=== PATIENT | female | born 1990 | race Caucasian/White ===

== ENCOUNTER 2017-10-23 01:11 | Outpatient (CLI) | payer MEDICAID ==
[2017-10-23 02:01] LABS: AMORPHOUS SEDIMENT,URINE TRACE /HPF; APPEARANCE,URINE CLOUDY; BILIRUBIN,URINE NEGATIVE (NEGATIVE); COLOR,URINE YELLOW; GLUCOSE, URINE NEGATIVE (NEGATIVE); KETONES,URINE NEGATIVE (NEGATIVE); LEUKOCYTE ESTERASE,URINE LARGE (NEGATIVE); NITRITE,URINE NEGATIVE (NEGATIVE); PROTEIN,URINE NEGATIVE (NEGATIVE); TRICHOMONAS, URINE PRESENT /HPF; URINE SPECIFIC GRAVITY 1.014
[2017-10-23 03:19] LABS: URINE BARBITURATES SCREEN NEGATIVE; URINE COCAINE SCREEN NEGATIVE; URINE MARIJUANA (THC) SCREEN NEGATIVE; URINE METHADONE SCREEN NEGATIVE; URINE PHENCYCLIDINE SCREEN NEGATIVE
[2017-10-23 03:26] LABS: URINE AMPHETAMINES SCREEN UNCONFIRMED POSITIVE; URINE BENZODIAZEPINES SCREEN UNCONFIRMED POSITIVE
== END 2017-10-23 03:46 | disposition home or self-care (01) ==
LOC: LC 01:11
PROVIDERS: ATTEND Obstetrics & Gynecology
PROC: 4A1HXCZ Monitoring of Products of Conception, Cardiac Rate, External Approach (ICD-10-PCS; principal; 2017-10-23)
DX: O47.02 False labor before 37 completed weeks of gestation, second trimester (principal); O98.912 Unspecified maternal infectious and parasitic disease complicating pregnancy, second trimester; A59.9 Trichomoniasis, unspecified; Z3A.22 22 weeks gestation of pregnancy
CPT/HCPCS: 80307; 81001

== ENCOUNTER 2017-10-30 20:39 | Emergency (ER) | payer MEDICAID ==
--- NOTE | 2017-10-30 21:24 | ER Document Report ---
ED Medical Screen (RME) - General Chief Complaint: passed out, chest pain, numbness Stated Complaint: CHEST PAINS,ARM NUMBNESS Time Seen by Provider: 10/30/17 21:17 Notes: 27-year-old female, 26 weeks , comes emergency department for chief complaint of a syncopal episode that happened earlier today, she states she was sitting down, felt tingling, woke up on the floor. She states that she feels tight in her chest and like she cannot take a deep breath, she states that she also still feels tingling in all her extremities. She states she does have a history of anxiety and she is not sure if this is related. She denies fever or chills, nausea or vomiting, abdominal pain, vaginal bleeding. She is feeling baby move. She denies any daily medications. TRAVEL OUTSIDE OF THE [place] IN LAST 30 DAYS: No - Related Data Allergies/Adverse Reactions: amoxicillin [Amoxicillin] Allergy (Verified 10/23/17 02:11) ampicillin [Ampicillin] Allergy (Verified 10/23/17 02:11) Penicillins Allergy (Verified 10/23/17 02:11) Past Medical History Neurological Medical History: Reports: Hx Migraine Skin Medical History: Reports Hx Psoriasis Past Surgical History: Reports: Hx Tonsillectomy Physical Exam - Vital signs Vitals: Temp Pulse Resp BP Pulse Ox 98.2 F 98 16 110/66 99 10/30/17 21:03 10/30/17 21:03 10/30/17 21:03 10/30/17 21:03 10/30/17 21:03 - Respiratory Respiratory status: No respiratory distress. No: Labored Breath sounds: Normal. No: Decreased air movement, Wheezing - Cardiovascular Rhythm: Regular. No: Tachycardia Heart sounds: Normal auscultation, S1 appreciated, S2 appreciated Course - Re-evaluation Re-evalutation: Patient with no tachypnea, signs of distress, no hypoxia, no tachycardia. Discussed workup, wanting an x-ray, this will be performed. I have greeted and performed a rapid initial assessment of this patient. A comprehensive ED assessment and evaluation of the patient, analysis of test results and completion of the medical decision making process will be conducted by additional ED providers. - Vital Signs Vital signs: Temp Pulse Resp BP Pulse Ox 98.2 F 98 16 110/66 99 10/30/17 21:03 10/30/17 21:03 10/30/17 21:03 10/30/17 21:03 10/30/17 21:03
[2017-10-30 21:51] LABS: ABSOLUTE BASOPHILS # (AUTO) 0.1 10^3/uL (0.0-0.2); ABSOLUTE EOSINOPHILS # (AUTO) 0.2 10^3/uL (0.0-0.6); ABSOLUTE MONOCYTES (AUTO) 0.7 10^3/uL (0.1-1.4); ABSOLUTE NEUT (AUTO) 6.2 10^3/uL (1.7-8.2); BASOPHILS % (AUTO) 0.8 % (0-2); EOSINOPHILS % (AUTO) 2.2 % (0-6); HEMATOCRIT 38.8 % (36.0-47.0); HEMOGLOBIN 13.4 g/dL (12.0-15.5); LYMPHOCYTES % (AUTO) 21.9 % (13-45); MEAN CORPUSCULAR HEMOGLOBIN 29.4 pg (27.0-33.4); MEAN CORPUSCULAR HGB CONC 34.4 g/dL (32.0-36.0); MEAN CORPUSCULAR VOLUME 86 fl (80-97); MONOCYTES % (AUTO) 7.6 % (3-13); PLATELET COUNT 274 10^3/uL (150-450); RED BLOOD COUNT 4.54 10^6/uL (3.72-5.28); RED CELL DISTRIBUTION WIDTH 12.9 % (11.5-14.0); SEGMENTED NEUTROPHILS % (AUTO) 67.5 % (42-78); TOTAL CELLS COUNTED % (AUTO) 100 %; WHITE BLOOD COUNT 9.1 10^3/uL (4.0-10.5)
--- NOTE | 2017-10-30 22:01 | RADIOLOGY REPORT (SQ) ---
EXAM DESCRIPTION: CHEST PA/LAT COMPLETED DATE/TIME: 10/30/2017 9:47 pm REASON FOR STUDY: chest tightness; shield () COMPARISON: 01/20/2016 EXAM PARAMETERS: NUMBER OF VIEWS: two views TECHNIQUE: Digital Frontal and Lateral radiographic views of the chest acquired. RADIATION DOSE: NA LIMITATIONS: none FINDINGS: LUNGS AND PLEURA: No opacities, masses or pneumothorax. No pleural effusion. MEDIASTINUM AND HILAR STRUCTURES: No masses or contour abnormalities. HEART AND VASCULAR STRUCTURES: Heart normal size. No evidence for failure. BONES: No acute findings. HARDWARE: None in the chest. OTHER: No other significant finding. IMPRESSION: NO SIGNIFICANT RADIOGRAPHIC FINDING IN THE CHEST. TECHNICAL DOCUMENTATION: JOB ID: [id number] [employer]- All Rights Reserved
[2017-10-30 22:07] LABS: ANION GAP 10 (5-19); BLOOD UREA NITROGEN 5 mg/dL (7-20); CALCIUM 9.3 mg/dL (8.4-10.2); CARBON DIOXIDE 26 mmol/L (22-30); CHLORIDE 103 mmol/L (98-107); GLUCOSE 91 mg/dL (75-110); POTASSIUM 4.1 mmol/L (3.6-5.0); SODIUM 139.2 mmol/L (137-145)
--- NOTE | 2017-10-30 22:37 | ER Document Report ---
ED General - General Chief Complaint: passed out, chest pain, numbness Stated Complaint: CHEST PAINS,ARM NUMBNESS Time Seen by Provider: 10/30/17 21:17 Notes: Patient is a 27-year-old female who is approximately 26 weeks who presents with complaint of a syncopal episode. Patient says that she was having chest pain and numbness into her extremities. She then passed out. Patient says she still has a chest pain. She says she does have history of stress and anxiety. She says that she is always stressed. She says she has never had a syncopal episode associated with stress or anxiety. She says he typically does not get this kind of chest pain but has had some chest pain in the past as well. She denies abnormal vaginal bleeding or discharge. She said she has had no complications with her other than some bleeding a few weeks ago which since resolved. She denies any recent fevers or infections. No leg pain or leg swelling. No other complaints at this time. TRAVEL OUTSIDE OF THE [place] IN LAST 30 DAYS: No - Related Data Allergies/Adverse Reactions: amoxicillin [Amoxicillin] Allergy (Verified 10/23/17 02:11) ampicillin [Ampicillin] Allergy (Verified 10/23/17 02:11) Penicillins Allergy (Verified 10/23/17 02:11) Past Medical History - Social History Smoking Status: Never Smoker Frequency of alcohol use: None Drug Abuse: None Family History: None, Reviewed & Not Pertinent Patient has suicidal ideation: No Patient has homicidal ideation: No Neurological Medical History: Reports: Hx Migraine Renal/ Medical History: Denies: Hx Peritoneal Dialysis Skin Medical History: Reports Hx Psoriasis Past Surgical History: Reports: Hx Tonsillectomy Review of Systems - Review of Systems Notes: My Normal Review Basic REVIEW OF SYSTEMS: CONSTITUTIONAL : Denies fever, chills, or sweats. Denies recent illness. EENT: Denies eye, ear, throat, or mouth pain or symptoms. Denies nasal or sinus congestion. CARDIOVASCULAR: Chest pain. RESPIRATORY: Shortness of breath. GASTROINTESTINAL: Denies abdominal pain. Denies nausea, vomiting, or diarrhea. Denies constipation. Last BM: GENITOURINARY: Denies difficulty urinating, painful urination, burning, frequency, or blood in urine. FEMALE GENITOURINARY: Denies vaginal bleeding, abnormal or irregular periods. LMP: Currently . MUSCULOSKELETAL: Denies neck or back pain or joint pain or swelling. SKIN: Denies rash or skin lesions. HEMATOLOGIC : Denies easy bruising or bleeding. NEUROLOGICAL: Denies altered mental status or loss of consciousness. Denies headache. Denies weakness or paralysis or loss of use of either side. Denies problems with gait or speech. Denies sensory or motor loss. PSYCHIATRIC: Some stress and anxiety. ALL OTHER SYSTEMS REVIEWED AND NEGATIVE. Physical Exam - Vital signs Vitals: Temp Pulse Resp BP Pulse Ox 98.2 F 98 16 110/66 99 10/30/17 21:03 10/30/17 21:03 10/30/17 21:03 10/30/17 21:03 10/30/17 21:03 - Notes Notes: General Appearance: Well nourished, alert, cooperative, no acute distress, mild obvious discomfort. Vitals: reviewed, See vital signs table. Head: no swelling or tenderness to the head Eyes: PERRL, EOMI, Conjuctiva clear Mouth: No decreasd moisture Throat: No tonsillar inflammation, No airway obstruction, No lymphadenopathy Neck: Supple, no neck tenderness, No thyromegaly Lungs: No wheezing, No rales, No rhonci, No accessory muscle use, good air exchange bilaterally. Heart: Normal rate, Regular rythm, No murmur, no rub Swallow: No reproducible pain to palpation of anterior chest wall. Abdomen: Normal BS, soft, No rigidity, No abdominal tenderness, No guarding, no rebound, no abdominal masses, no organomegaly. Gravid abdomen. Extremities: strength 5/5 in all extremities, good pulses in all extremities, no swelling or tenderness in the extremities, no edema. Skin: warm, dry, appropriate color, no rash Neuro: speech clear, oriented x 3, normal affect, responds appropriately to questions. Course - Re-evaluation Re-evalutation: 10/30/17 23:57 Talk patient length about her symptoms. Symptoms may be stress related however she has never had a syncopal episode in in conjunction with chest pain before. She is . This puts her somewhere at risk for PE. I talked her length about this and the need to rule out PE. Informed her we can first obtain a d- dimer. I informed her this is positive then we may need to go forward with the CT a of the chest. I informed her that there is low risk of radiation to the fetus being fetus is 26 weeks; however, there is greater risk to her and that increases her risk of breast cancer in the future. Patient shows understanding of this but is agreeable to test. 10/31/17 02:[address] scan was obtained was negative. Appears patient's pain most likely is related to stress. Density was ordered since she had a positive d-dimer and patient also syncopal episode in conjunction with chest pain shortness of breath which she has never had a syncopal episode conjunction with the symptoms in the past. Patient clinically looks well. Her lung whaley are clear. I feel she is safe to be discharged home. I prescribed Vistaril to help with anxiety. I warned her not to take benzodiazepines as this can be unsafe in . Encouraged her follow-up closely with her manager finance. Patient agrees with plan will be discharged home. Dictation of this chart was performed using voice recognition software; therefore, there may be some unintended grammatical errors. - Vital Signs Vital signs: Temp Pulse Resp BP Pulse Ox 98.2 F 98 16 110/66 99 10/30/17 21:03 10/30/17 21:03 10/30/17 21:03 10/30/17 21:03 10/30/17 21:03 - Laboratory Result Diagrams: 10/30/17 21:45 10/30/17 21:45 Laboratory results interpreted by me: 10/30/17 10/30/17 21:45 21:45 D-Dimer 0.68 H BUN 5 L Creatinine 0.45 L - EKG Interpretation by Me Additional EKG results interpreted by me: 10/30/17 22:37 EKG is reviewed and interpreted by me. EKG shows normal sinus rhythm with a rate of [address] segment elevation or depression. No ischemic T-wave inversions. SD interval, QRS duration, QTc intervals are within normal range. Old EKG for comparison is from January 20, 2016. Discharge - Discharge Clinical Impression: Stress Chest pain Qualifiers: Chest pain type: unspecified Qualified Code(s): R07.9 - Chest pain, unspecified Syncope Qualifiers: Syncope type: unspecified Qualified Code(s): R55 - Syncope and collapse Condition: Good Disposition: HOME, SELF-CARE Additional Instructions: Please follow up with your OB physician for reevaluation. please return to the ER immediately if you have worsening chest pain, difficulty breathing, fevers, or feel that your symptoms are worsening. Prescriptions: Hydroxyzine Pamoate [Vistaril 25 mg Capsule] 25 mg PO DAILY PRN #15 capsule PRN Reason: Anxiety Referrals: KALE AGUDELO MD [Primary Care Provider] - 11/01/17
[2017-10-30] MEDS ORDERED: HYDROXYZINE PAMOATE 25 MG CAPSULE PO ONE (22:49)
[2017-10-30] MEDS ORDERED: NORMAL SALINE 1000 ML 1,000 ML IV ONE (23:23)
--- NOTE | 2017-10-31 02:27 | RADIOLOGY REPORT (SQ) ---
EXAM DESCRIPTION: CTA CHEST CLINICAL HISTORY: 27 years Female, chest pain, syncope, COMPARISON: CR, 10/30/2017. TECHNIQUE: IV contrast. Multiplanar reformat. This exam was performed according to our departmental dose-optimization program, which includes automated exposure control, adjustment of the mA and/or kV according to patient size and/or use of iterative reconstruction technique. FINDINGS: No acute cardiopulmonary findings. No evidence of pulmonary embolus. No right ventricular strain. 0.3 cm likely benign right upper lobar pulmonary nodule; no routine follow-up recommended. Inferior neck, axillae, mediastinum, lungs, airway, lymphatics, heart, vasculature, upper abdomen, and musculoskeleton appear otherwise unremarkable. IMPRESSION: No acute cardiopulmonary findings. No pulmonary embolus.
[2017-10-31 02:56] VITALS: BP 102/56
--- NOTE | 2017-10-31 09:29 | EKG REPORT ---
SEVERITY:- OTHERWISE NORMAL ECG - SINUS ARRHYTHMIA, RATE 70-83 : Confirmed by: Meseret Gloria 31-Oct-2017 09:29:29
== END 2017-10-31 02:57 | disposition home or self-care (01) ==
LOC: ER 20:39
DX: O99.340 Other mental disorders complicating pregnancy, unspecified trimester (principal); F43.9 Reaction to severe stress, unspecified; F41.9 Anxiety disorder, unspecified; O26.899 Other specified pregnancy related conditions, unspecified trimester; R55 Syncope and collapse; R79.1 Abnormal coagulation profile; R06.02 Shortness of breath; R20.0 Anesthesia of skin; R07.9 Chest pain, unspecified; Z3A.00 Weeks of gestation of pregnancy not specified; Z88.0 Allergy status to penicillin
CPT/HCPCS: 93005; 99285; 96360; 36415; 85025; 80048; 85379; 71046; 71275; 93010; J3490; J7030

== ENCOUNTER 2018-01-30 18:54 | Outpatient (CLI) | payer MEDICAID ==
[2018-01-30 19:28] LABS: APPEARANCE,URINE SLIGHTLY-CLOUDY; BILIRUBIN,URINE NEGATIVE (NEGATIVE); COLOR,URINE YELLOW; GLUCOSE, URINE NEGATIVE (NEGATIVE); KETONES,URINE NEGATIVE (NEGATIVE); LEUKOCYTE ESTERASE,URINE TRACE (NEGATIVE); NITRITE,URINE NEGATIVE (NEGATIVE); PROTEIN,URINE NEGATIVE (NEGATIVE); URINE SPECIFIC GRAVITY 1.013; UROBILINOGEN,URINE NEGATIVE mg/dL (<2.0)
[2018-01-30] MEDS ORDERED: RINGERS SOLUTION,LACTATED 1,000 ML IV ONE (19:30)
[2018-01-30] MEDS ORDERED: RINGERS SOLUTION,LACTATED 1,000 ML IV PRN (19:30)
[2018-01-30 19:45] LABS: URINE AMPHETAMINES SCREEN NEGATIVE; URINE BARBITURATES SCREEN NEGATIVE; URINE BENZODIAZEPINES SCREEN NEGATIVE; URINE COCAINE SCREEN NEGATIVE; URINE MARIJUANA (THC) SCREEN NEGATIVE; URINE METHADONE SCREEN NEGATIVE; URINE PHENCYCLIDINE SCREEN NEGATIVE
[2018-01-30] MEDS ORDERED: CITRIC ACID/SODIUM CITRATE ORAL SOLN 15 ML UDCUP PO ONE (20:17)
[2018-01-30 20:19] LABS: T.VAGINALIS (WET MOUNT) NO TRICHOMONAS SEEN; WBCS (WET MOUNT) FEW WBCS SEEN; YEAST (WET MOUNT) NO YEAST SEEN
[2018-01-30] MEDS ORDERED: CITRIC ACID/SODIUM CITRATE ORAL SOLN 15 ML UDCUP ONE (20:20)
[2018-01-30 21:45] LABS: CHLAM PCR DETECTED (NOT DETECT); GON PCR NOT DETECTED (NOT DETECT)
[2018-01-30] MEDS ORDERED: AZITHROMYCIN 250 MG TABLET PO ONE (21:50)
[2018-01-30] MEDS ORDERED: CEFTRIAXONE INJ 500 MG VIAL IM ONE (21:52)
[2018-01-30] MEDS ORDERED: AZITHROMYCIN 250 MG TABLET ONE (22:06)
[2018-01-30] MEDS ORDERED: CEFTRIAXONE INJ 1000 MG VIAL ONE ×2 (22:06→22:16)
== END 2018-01-30 22:51 | disposition home or self-care (01) ==
LOC: LC 18:54
PROVIDERS: ATTEND Student in an Organized Health Care Education/Training Program
PROC: 4A1HXCZ Monitoring of Products of Conception, Cardiac Rate, External Approach (ICD-10-PCS; principal; 2018-01-30)
DX: O47.03 False labor before 37 completed weeks of gestation, third trimester (principal); O98.813 Other maternal infectious and parasitic diseases complicating pregnancy, third trimester; A74.9 Chlamydial infection, unspecified; Z3A.36 36 weeks gestation of pregnancy
CPT/HCPCS: 59025; 87210; 81005; 87077; 87081; 80307; 87491; 87591; Q0144; J0696; J3490

== ENCOUNTER 2018-01-31 14:41 | Outpatient (CLI) | payer MEDICAID ==
--- NOTE | 2018-01-31 14:48 | Non Stress Test Report ---
Non Stress Test Datetime Report Generated by CPN: 01/31/2018 14:48 DEMOGRAPHIC EGA NST: 36.1 INDICATION Indication for Study: Ordered by Provider MONITORING Monitor Explained: Monitor Explained; Test Explained; Patient Verbalized Understanding Time on Monitor: 01/30/2018 19:11 Time off Monitor: 01/30/2018 21:38 NST Duration: 147 NST INTERVENTIONS NST Interventions: PO Hydration; Reposition Patient Physician Notified NST: DrBrisa Syed BABY A: [id number] BABY A Movement : Present Contraction Frequency : 1.5-5.5 FHR Baseline : 150 Accelerations : 15X15 Decelerations : None Variability : Moderate 6-25bpm NST Review: Meets Criteria for Reactive NST NST Review and Verified By : Jim Bermudez RNC NST Results: Reactive NST REPORT Report Trigger: Send Report
[2018-01-31 15:33] LABS: APPEARANCE,URINE CLOUDY; BILIRUBIN,URINE NEGATIVE (NEGATIVE); COLOR,URINE AMBER; GLUCOSE, URINE NEGATIVE (NEGATIVE); KETONES,URINE NEGATIVE (NEGATIVE); LEUKOCYTE ESTERASE,URINE LARGE (NEGATIVE); NITRITE,URINE NEGATIVE (NEGATIVE); PROTEIN,URINE 30 mg/dL (NEGATIVE)
[2018-01-31] MEDS ORDERED: HYDROXYZINE PAMOATE 50 MG CAPSULE ONE (15:44)
[2018-01-31] MEDS ORDERED: HYDROXYZINE PAMOATE 50 MG CAPSULE PO ONE (15:49)
[2018-01-31 16:07] LABS: URINE AMPHETAMINES SCREEN NEGATIVE; URINE BARBITURATES SCREEN NEGATIVE; URINE BENZODIAZEPINES SCREEN NEGATIVE; URINE COCAINE SCREEN NEGATIVE; URINE MARIJUANA (THC) SCREEN NEGATIVE; URINE METHADONE SCREEN NEGATIVE; URINE PHENCYCLIDINE SCREEN NEGATIVE
[2018-01-31 16:19] LABS: HEMATOCRIT 31.1 % (36.0-47.0); HEMOGLOBIN 10.1 g/dL (12.0-15.5); MEAN CORPUSCULAR HEMOGLOBIN 23.8 pg (27.0-33.4); MEAN CORPUSCULAR HGB CONC 32.5 g/dL (32.0-36.0); MEAN CORPUSCULAR VOLUME 73 fl (80-97); PLATELET COUNT 404 10^3/uL (150-450); RED BLOOD COUNT 4.24 10^6/uL (3.72-5.28); WHITE BLOOD COUNT 14.1 10^3/uL (4.0-10.5)
[2018-01-31 16:35] LABS: ABSOLUTE LYMPHOCYTES# (MANUAL) 3.7 10^3/uL (0.5-4.7); ABSOLUTE MONOCYTES # (MANUAL) 1.1 10^3/uL (0.1-1.4); ABSOLUTE NEUTROPHILS# (MANUAL) 9.3 10^3/uL (1.7-8.2); BASOPHILS % (MANUAL) 0 % (0-2); EOSINOPHILS % (MANUAL) 0 % (0-6); LYMPHOCYTES % (MANUAL) 26 % (13-45); MONOCYTES % (MANUAL) 8 % (3-13); SEGMENTED NEUTROPHILS % (MAN) 66 % (42-78); TOTAL CELLS COUNTED 100
[2018-01-31 16:37] LABS: ANISOCYTOSIS 1+; HYPOCHROMASIA SLIGHT; OVALOCYTES SLIGHT; PLATELET COMMENT ADEQUATE; PLATELET LARGE PRESENT; POIKILOCYTOSIS SLIGHT; POLYCHROMASIA SLIGHT
[2018-01-31] MEDS ORDERED: NALBUPHINE HCL INJ 10 MG/1 ML AMPULE ONE (16:41)
[2018-01-31] MEDS ORDERED: NALBUPHINE HCL INJ 10 MG/1 ML AMPULE INJ ONE (16:44)
--- NOTE | 2018-01-31 17:41 | Non Stress Test Report ---
Non Stress Test Datetime Report Generated by CPN: 01/31/2018 17:41 DEMOGRAPHIC EGA NST: 36.2 INDICATION Indication for Study: Ordered by Provider MONITORING Monitor Explained: Monitor Explained; Test Explained; Patient Verbalized Understanding Time on Monitor: 01/31/2018 14:55 Time off Monitor: 01/31/2018 17:38 NST Duration: 163 NST INTERVENTIONS NST Interventions: PO Hydration; IV Fluids Physician Notified NST: P. Wilson, CNM BABY A Movement : Present Contraction Frequency : irregular FHR Baseline : 155 Accelerations : 15X15 Decelerations : None Variability : Moderate 6-25bpm NST Review: Meets Criteria for Reactive NST NST Review and Verified By : LISA Guillen Results: Reactive NST REPORT Report Trigger: Send Report
[2018-01-31 18:46] LABS: AMNISURE (ROM) NEGATIVE (NEGATIVE)
== END 2018-01-31 19:06 | disposition home or self-care (01) ==
LOC: LC 14:41
PROVIDERS: ATTEND Obstetrics & Gynecology
PROC: 4A1HXCZ Monitoring of Products of Conception, Cardiac Rate, External Approach (ICD-10-PCS; principal; 2018-01-31)
DX: O47.03 False labor before 37 completed weeks of gestation, third trimester (principal); O98.813 Other maternal infectious and parasitic diseases complicating pregnancy, third trimester; A74.9 Chlamydial infection, unspecified; Z3A.36 36 weeks gestation of pregnancy
CPT/HCPCS: 59025; 84112; 36415; 85025; 81005; 80307; J3490; J2300

== ENCOUNTER 2018-02-05 21:41 | Outpatient (CLI) | payer MEDICAID ==
[2018-02-05] MEDS ORDERED: RINGERS SOLUTION,LACTATED 1,000 ML IV ONE (22:09)
[2018-02-05] MEDS ORDERED: RINGERS SOLUTION,LACTATED 1,000 ML IV PRN (22:09)
[2018-02-05 22:17] LABS: AMNISURE (ROM) NEGATIVE (NEGATIVE)
[2018-02-05] MEDS ORDERED: HYDROXYZINE PAMOATE 50 MG CAPSULE PO ONE (22:33)
[2018-02-05] MEDS ORDERED: HYDROXYZINE PAMOATE 50 MG CAPSULE ONE (22:35)
[2018-02-05 23:11] LABS: APPEARANCE,URINE CLOUDY; BILIRUBIN,URINE NEGATIVE (NEGATIVE); COLOR,URINE YELLOW; GLUCOSE, URINE NEGATIVE (NEGATIVE); KETONES,URINE TRACE mg/dL (NEGATIVE); LEUKOCYTE ESTERASE,URINE LARGE (NEGATIVE); NITRITE,URINE NEGATIVE (NEGATIVE); PROTEIN,URINE 30 mg/dL (NEGATIVE); URINE SPECIFIC GRAVITY 1.025
[2018-02-05 23:19] LABS: T.VAGINALIS (WET MOUNT) NO TRICHOMONAS SEEN; WBCS (WET MOUNT) FEW WBCS SEEN; YEAST (WET MOUNT) NO YEAST SEEN
[2018-02-05 23:31] LABS: URINE AMPHETAMINES SCREEN NEGATIVE; URINE BARBITURATES SCREEN NEGATIVE; URINE BENZODIAZEPINES SCREEN NEGATIVE; URINE COCAINE SCREEN NEGATIVE; URINE MARIJUANA (THC) SCREEN NEGATIVE; URINE METHADONE SCREEN NEGATIVE; URINE PHENCYCLIDINE SCREEN NEGATIVE
--- NOTE | 2018-02-09 03:13 | Non Stress Test Report ---
Non Stress Test Datetime Report Generated by CPN: 02/09/2018 03:13 DEMOGRAPHIC EGA NST: 37.0 INDICATION Indication for Study: Ordered by Provider MONITORING Monitor Explained: Monitor Explained; Test Explained; Patient Verbalized Understanding Time on Monitor: 02/05/2018 22:33 Time off Monitor: 02/05/2018 23:10 NST Duration: 37 NST INTERVENTIONS NST Interventions: PO Hydration; IV Fluids Physician Notified NST: DrBrisa Syed BABY A: [id number] BABY A Movement : Present Contraction Frequency : irregular FHR Baseline : 150 Accelerations : 15X15 Decelerations : None Variability : Moderate 6-25bpm NST Review: Meets Criteria for Reactive NST NST Review and Verified By : KOLE Alves NSGeorgie Results: Reactive NST REPORT Report Trigger: Send Report
== END 2018-02-05 23:49 | disposition home or self-care (01) ==
LOC: LC 21:41
PROVIDERS: ATTEND Student in an Organized Health Care Education/Training Program
PROC: 4A1HXCZ Monitoring of Products of Conception, Cardiac Rate, External Approach (ICD-10-PCS; principal; 2018-02-05)
DX: O47.1 False labor at or after 37 completed weeks of gestation (principal); Z3A.37 37 weeks gestation of pregnancy
CPT/HCPCS: 84112; 87210; 81005; 80307; 59025; Q0114; J3490

== ENCOUNTER 2018-02-09 03:13 | Outpatient (CLI) | payer MEDICAID ==
[2018-02-09 04:04] LABS: APPEARANCE,URINE SLIGHTLY-CLOUDY; BILIRUBIN,URINE NEGATIVE (NEGATIVE); COLOR,URINE AMBER; GLUCOSE, URINE NEGATIVE (NEGATIVE); KETONES,URINE TRACE mg/dL (NEGATIVE); LEUKOCYTE ESTERASE,URINE SMALL (NEGATIVE); NITRITE,URINE NEGATIVE (NEGATIVE); PROTEIN,URINE 30 mg/dL (NEGATIVE); URINE SPECIFIC GRAVITY 1.027
[2018-02-09 04:20] LABS: URINE AMPHETAMINES SCREEN NEGATIVE; URINE BARBITURATES SCREEN NEGATIVE; URINE BENZODIAZEPINES SCREEN NEGATIVE; URINE COCAINE SCREEN NEGATIVE; URINE MARIJUANA (THC) SCREEN NEGATIVE; URINE METHADONE SCREEN NEGATIVE; URINE PHENCYCLIDINE SCREEN NEGATIVE
[2018-02-09] MEDS ORDERED: HYDROXYZINE PAMOATE 50 MG CAPSULE PO ONE (04:23)
[2018-02-09] MEDS ORDERED: HYDROXYZINE PAMOATE 50 MG CAPSULE ONE (04:27)
== END 2018-02-09 04:20 | disposition home or self-care (01) ==
LOC: LC 03:13
PROVIDERS: ATTEND Obstetrics & Gynecology
PROC: 4A1HXCZ Monitoring of Products of Conception, Cardiac Rate, External Approach (ICD-10-PCS; principal; 2018-02-09)
DX: Z34.93 Encounter for supervision of normal pregnancy, unspecified, third trimester (principal)
CPT/HCPCS: 59025; 81005; 80307; J3490

== ENCOUNTER 2018-02-15 10:55 | Outpatient (CLI) | payer MEDICAID ==
--- NOTE | 2018-02-15 11:03 | Non Stress Test Report ---
Non Stress Test Datetime Report Generated by CPN: 02/15/2018 11:02 DEMOGRAPHIC EGA NST: 37.4 INDICATION Indication for Study: Other Indication for Study (NST) Other: LC URINE RESULTS Urine Protein, NST: Positive Urine Ketones - NST: Positive Urine Glucose - NST: Negative Urine Blood - NST: Negative MONITORING Monitor Explained: Monitor Explained; Test Explained; Patient Verbalized Understanding Time on Monitor: 02/09/2018 03:30 Time off Monitor: 02/09/2018 04:31 NST Duration: 61 NST INTERVENTIONS NST Interventions: PO Hydration; Reposition Patient Physician Notified NST: Dr. Kemar BABY A: [id number] BABY A Movement : Present Contraction Frequency : iregg FHR Baseline : 135 Accelerations : 15X15 Decelerations : None Variability : Moderate 6-25bpm NST Review: Meets Criteria for Reactive NST NST Review and Verified By : Denia Marie RN NST Results: Reactive NST REPORT Report Trigger: Send Report
[2018-02-15 11:48] LABS: APPEARANCE,URINE SLIGHTLY-CLOUDY; BILIRUBIN,URINE NEGATIVE (NEGATIVE); COLOR,URINE YELLOW; GLUCOSE, URINE NEGATIVE (NEGATIVE); KETONES,URINE NEGATIVE (NEGATIVE); LEUKOCYTE ESTERASE,URINE SMALL (NEGATIVE); NITRITE,URINE NEGATIVE (NEGATIVE); PROTEIN,URINE NEGATIVE (NEGATIVE); URINE SPECIFIC GRAVITY 1.015; UROBILINOGEN,URINE NEGATIVE mg/dL (<2.0)
--- NOTE | 2018-02-15 11:53 | Non Stress Test Report ---
Non Stress Test Datetime Report Generated by CPN: 02/15/2018 11:53 DEMOGRAPHIC EGA NST: 38.3 INDICATION Indication for Study: Ordered by Provider Indication for Study (NST) Other: LC MONITORING Monitor Explained: Monitor Explained; Test Explained; Patient Verbalized Understanding Time on Monitor: 02/15/2018 11:09 Time off Monitor: 02/15/2018 11:48 NST Duration: 39 NST INTERVENTIONS NST Interventions: PO Hydration; Reposition Patient Physician Notified NST: A Hugo CNM BABY A Movement : Present Contraction Frequency : Irr FHR Baseline : 150 Accelerations : 15X15 Decelerations : None Variability : Moderate 6-25bpm NST Review: Meets Criteria for Reactive NST NST Review and Verified By : Bethany Courtney RN NST Results: Reactive NST REPORT Report Trigger: Send Report
[2018-02-15 12:19] LABS: URINE AMPHETAMINES SCREEN NEGATIVE; URINE BARBITURATES SCREEN NEGATIVE; URINE BENZODIAZEPINES SCREEN NEGATIVE; URINE COCAINE SCREEN NEGATIVE; URINE MARIJUANA (THC) SCREEN NEGATIVE; URINE METHADONE SCREEN NEGATIVE; URINE PHENCYCLIDINE SCREEN NEGATIVE
== END 2018-02-15 12:05 | disposition home or self-care (01) ==
LOC: LC 10:55
PROVIDERS: ATTEND Obstetrics & Gynecology
PROC: 4A1HXCZ Monitoring of Products of Conception, Cardiac Rate, External Approach (ICD-10-PCS; principal; 2018-02-15)
DX: O47.1 False labor at or after 37 completed weeks of gestation (principal); O26.853 Spotting complicating pregnancy, third trimester; Z3A.38 38 weeks gestation of pregnancy
CPT/HCPCS: 59025; 80307; 81005

== ENCOUNTER 2018-02-20 00:29 | Outpatient (CLI) | payer MEDICAID ==
[2018-02-20 00:53] LABS: APPEARANCE,URINE CLOUDY; BILIRUBIN,URINE NEGATIVE (NEGATIVE); COLOR,URINE YELLOW; GLUCOSE, URINE NEGATIVE (NEGATIVE); KETONES,URINE NEGATIVE (NEGATIVE); LEUKOCYTE ESTERASE,URINE MODERATE (NEGATIVE); NITRITE,URINE NEGATIVE (NEGATIVE); PROTEIN,URINE NEGATIVE (NEGATIVE); URINE SPECIFIC GRAVITY 1.015; UROBILINOGEN,URINE NEGATIVE mg/dL (<2.0)
[2018-02-20 01:23] LABS: URINE AMPHETAMINES SCREEN NEGATIVE; URINE BARBITURATES SCREEN NEGATIVE; URINE BENZODIAZEPINES SCREEN NEGATIVE; URINE COCAINE SCREEN NEGATIVE; URINE MARIJUANA (THC) SCREEN NEGATIVE; URINE METHADONE SCREEN NEGATIVE; URINE PHENCYCLIDINE SCREEN NEGATIVE
[2018-02-20 02:21] LABS: CHLAM PCR NOT DETECTED (NOT DETECT); GON PCR NOT DETECTED (NOT DETECT)
--- NOTE | 2018-02-20 04:18 | Non Stress Test Report ---
Non Stress Test Datetime Report Generated by CPN: 02/20/2018 04:18 DEMOGRAPHIC Test Number: 5 EGA NST: 39.1 INDICATION Indication for Study: Ordered by Provider MONITORING Monitor Explained: Monitor Explained; Test Explained; Patient Verbalized Understanding Time on Monitor: 02/20/2018 02:17 Time off Monitor: 02/20/2018 02:58 NST Duration: 41 NST INTERVENTIONS NST Interventions: PO Hydration Physician Notified NST: Dr Davis BABY A: [id number] BABY A Movement : Present Contraction Frequency : 3-8 FHR Baseline : 150 Accelerations : 15X15 Decelerations : Early Variability : Moderate 6-25bpm NST Review: Meets Criteria for Reactive NST NST Review and Verified By : KOLE Alves NST Results: Reactive NST REPORT Report Trigger: Send Report
== END 2018-02-20 04:07 | disposition home or self-care (01) ==
LOC: LC 00:29
PROVIDERS: ATTEND Obstetrics & Gynecology
PROC: 4A1HXCZ Monitoring of Products of Conception, Cardiac Rate, External Approach (ICD-10-PCS; principal; 2018-02-20)
DX: O47.1 False labor at or after 37 completed weeks of gestation (principal); O36.8330 Maternal care for abnormalities of the fetal heart rate or rhythm, third trimester, not applicable or unspecified; Z3A.39 39 weeks gestation of pregnancy
CPT/HCPCS: 59025; 80307; 81005; 87491; 87591

== ENCOUNTER 2018-02-27 22:41 | Inpatient (IN) | payer MEDICAID ==
[2018-02-27 23:22] LABS: AMNISURE (ROM) POSITIVE (NEGATIVE)
[2018-02-27] MEDS ORDERED: RINGERS SOLUTION,LACTATED 1,000 ML IV PRN (23:32)
[2018-02-27] MEDS ORDERED: RINGERS SOLUTION,LACTATED 1,000 ML IV ONE (23:32)
[2018-02-27 23:44] LABS: APPEARANCE,URINE CLEAR; BILIRUBIN,URINE NEGATIVE (NEGATIVE); COLOR,URINE YELLOW; GLUCOSE, URINE NEGATIVE (NEGATIVE); KETONES,URINE NEGATIVE (NEGATIVE); LEUKOCYTE ESTERASE,URINE NEGATIVE (NEGATIVE); NITRITE,URINE NEGATIVE (NEGATIVE); PROTEIN,URINE NEGATIVE (NEGATIVE); URINE SPECIFIC GRAVITY 1.015; UROBILINOGEN,URINE NEGATIVE mg/dL (<2.0)
[2018-02-27] MEDS ORDERED: VANCOMYCIN HCL 1,000 MG in DEXTROSE 5%-WATER 250 ML IV SCH (23:45)
[2018-02-27 23:46] LABS: URINE BARBITURATES SCREEN NEGATIVE; URINE BENZODIAZEPINES SCREEN NEGATIVE; URINE COCAINE SCREEN NEGATIVE; URINE MARIJUANA (THC) SCREEN NEGATIVE; URINE METHADONE SCREEN NEGATIVE; URINE PHENCYCLIDINE SCREEN NEGATIVE
[2018-02-27 23:49] LABS: URINE AMPHETAMINES SCREEN UNCONFIRMED POSITIVE
[2018-02-27] MEDS ORDERED: OXYTOCIN/NORMAL SALINE 20 UNIT/1,000 ML RTUINJ IV PRN (23:59)
[2018-02-28] MEDS ORDERED: VANCOMYCIN HCL INJ 1000 MG VIAL ONE (00:06)
[2018-02-28] MEDS ORDERED: METRONIDAZOLE 500 MG/NS RTU 100 ML IV ONE ×2 (00:06→01:21)
[2018-02-28] MEDS ORDERED: AZITHROMYCIN INJ 500 MG VIAL IV ONE ×3 (00:16→01:46)
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
[2018-02-28] MEDS ORDERED: OXYTOCIN/NORMAL SALINE 20 UNIT/1,000 ML RTUINJ ONE ×2 (00:32→05:02)
[2018-02-28] MEDS ORDERED: FENTANYL/BUPIVACAINE/NS/PF 300 MCG/150 ML RTUINJ EPI ONE (01:08)
[2018-02-28] MEDS ORDERED: BUPIVACAINE HCL 0.25 % INJ/PF (2.5 MG/1 ML) 30 ML VIAL ONE (01:08)
[2018-02-28] MEDS ORDERED: LIDOCAINE 1.5%/EPINEPHRINE INJ-PF 30 ML SDV ONE (01:08)
[2018-02-28] MEDS ORDERED: EPHEDRINE SULFATE INJ 50 MG/1 ML AMPULE ONE (01:08)
[2018-02-28 01:57] LABS: HEMATOCRIT 25.8 % (36.0-47.0); HEMOGLOBIN 8.4 g/dL (12.0-15.5); MEAN CORPUSCULAR HEMOGLOBIN 22.6 pg (27.0-33.4); MEAN CORPUSCULAR HGB CONC 32.4 g/dL (32.0-36.0); MEAN CORPUSCULAR VOLUME 70 fl (80-97); RED CELL DISTRIBUTION WIDTH 16.8 % (11.5-14.0); WHITE BLOOD COUNT 10.3 10^3/uL (4.0-10.5)
[2018-02-28] MEDS ORDERED: AZITHROMYCIN 500 MG in DEXTROSE 5%-WATER 250 ML IV ONE (02:00)
[2018-02-28 02:17] LABS: ABSOLUTE LYMPHOCYTES# (MANUAL) 2.8 10^3/uL (0.5-4.7); ABSOLUTE MONOCYTES # (MANUAL) 0.4 10^3/uL (0.1-1.4); ABSOLUTE NEUTROPHILS# (MANUAL) 6.8 10^3/uL (1.7-8.2); BAND NEUTROPHILS % (MANUAL) 2 % (3-5); BASOPHILS % (MANUAL) 2 % (0-2); EOSINOPHILS % (MANUAL) 1 % (0-6); LYMPHOCYTES % (MANUAL) 27 % (13-45); MONOCYTES % (MANUAL) 4 % (3-13); SEGMENTED NEUTROPHILS % (MAN) 63 % (42-78); TOTAL CELLS COUNTED 100
[2018-02-28 02:23] LABS: PLATELET COMMENT ADEQUATE
[2018-02-28 02:27] LABS: HYPOCHROMASIA 2+; PLATELET LARGE PRESENT
[2018-02-28 02:28] LABS: PLATELET CLUMPS PRESENT; PLATELET COUNT 339 10^3/uL (150-450)
[2018-02-28 02:29] LABS: PROMYELOCYTES % (MANUAL) 1 % (0)
[2018-02-28] MEDS ORDERED: HYDROXYZINE PAMOATE 50 MG CAPSULE ONE ×2 (02:57→08:45)
[2018-02-28] MEDS ORDERED: HYDROXYZINE PAMOATE 50 MG CAPSULE PO ONE (03:15)
[2018-02-28] MEDS ORDERED: LIDOCAINE 1% INJ-PF (10 MG/ML) 30 ML SDV ONE (05:02)
[2018-02-28] MEDS ORDERED: MISOPROSTOL 0.2 MG TABLET ONE (05:03)
[2018-02-28] MEDS ORDERED: NA PHOS,M-B/NA PHOS,DI-BA (ADULT) 133 ML ENEMA PR PRN (08:42)
[2018-02-28] MEDS ORDERED: GLYCERIN/WITCH HAZEL LEAF 1 EACH MED..PAD TP PRN (08:42)
[2018-02-28] MEDS ORDERED: ZOLPIDEM TARTRATE 5 MG TABLET PO PRN (08:42)
[2018-02-28] MEDS ORDERED: BENZOCAINE/MENTHOL AEROSOL SPRAY 56 ML TOP PRN (08:42)
[2018-02-28] MEDS ORDERED: MAGNESIUM HYDROXIDE SUSP 30 ML UDCUP PO PRN (08:42)
[2018-02-28] MEDS ORDERED: PSEUDOEPHEDRINE HCL 30 MG TABLET PO PRN (08:42)
[2018-02-28] MEDS ORDERED: MEASLES,MUMPS&RUBELLA VACC/PF 0.5 ML VIAL SUBCUT PRN (08:42)
[2018-02-28] MEDS ORDERED: PROMETHAZINE HCL 25 MG TABLET PO PRN (08:42)
[2018-02-28] MEDS ORDERED: DIPH/PERTUSS(ACELL)/TETANUS VAC/PF 0.5 ML SYR (>=10YO) IM PRN (08:42)
[2018-02-28] MEDS ORDERED: ACETAMINOPHEN 325 MG TABLET PO PRN (08:42)
[2018-02-28] MEDS ORDERED: ACETAMINOPHEN WITH CODEINE #3 TABLET PO PRN (08:42)
[2018-02-28] MEDS ORDERED: DIPHENHYDRAMINE HCL 25 MG CAPSULE PO PRN (08:42)
[2018-02-28] MEDS ORDERED: PROMETHAZINE HCL INJ 25 MG/1 ML VIAL IV PRN (08:42)
[2018-02-28] MEDS ORDERED: OXYTOCIN/NORMAL SALINE 1,000 ML IV PRN (08:42)
[2018-02-28] MEDS ORDERED: PROMETHAZINE HCL 25 MG SUPP.RECT PR PRN (08:42)
[2018-02-28] MEDS ORDERED: DIBUCAINE 1% OINTMENT 28 GM TP PRN (08:42)
[2018-02-28] MEDS ORDERED: ACETAMINOPHEN WITH CODEINE #3 TABLET ONE (08:47)
[2018-02-28] MEDS: ACETAMINOPHEN WITH CODEINE #3 TABLET PO PRN ×4 (08:50→21:36)
[2018-02-28] MEDS ORDERED: PRENATAL VITAMIN W DHA CAPSULE PO ONE (11:03)
[2018-02-28] MEDS ORDERED: SENNOSIDES/DOCUSATE 8.6-50 MG 1 EACH TABLET ONE (11:03)
[2018-02-28] MEDS ORDERED: FAMOTIDINE 20 MG TABLET ONE (11:04)
[2018-02-28] MEDS ORDERED: DOCUSATE SODIUM 100 MG CAPSULE ONE (11:04)
[2018-02-28] MEDS ORDERED: FERROUS SULFATE 325 MG TABLET PO ONE (11:04)
[2018-02-28] MEDS: SENNOSIDES/DOCUSATE 8.6-50 MG 1 EACH TABLET PO SCH (11:12)
[2018-02-28] MEDS: FERROUS SULFATE 325 MG TABLET PO SCH ×2 (11:12→17:05)
[2018-02-28] MEDS: PRENATAL VITAMIN W DHA CAPSULE PO SCH (11:13)
[2018-02-28] MEDS: DOCUSATE SODIUM 100 MG CAPSULE PO SCH ×2 (11:13→17:05)
[2018-02-28] MEDS: FAMOTIDINE 20 MG TABLET PO SCH ×2 (11:14→21:35)
--- NOTE | 2018-02-28 11:21 | Warning Signs in Babies ---
VOD Warning Signs Datetime Report Generated by [facility]: 02/28/2018 11:21 VOD#608 -Warning Signs in Babies: Viewed with Parent(s)/Family (10/23/2017 01:15:Brooks Miller RN)
--- NOTE | 2018-02-28 12:27 | Delivery Summary ---
Del Sum A-C Datetime Report Generated by CPN: 02/28/2018 12:26 DELIVERY PERSONNEL DELIVERY PERSONNEL: [id number] Delivery Doctor:: Magalys Syed MD Anesthesiologist:: Wei Ruiz MD Labor and Delivery Nurse:: Iza Lubin RNirrigation foreman Nurse:: Skylar Morocho RN Box Blank Machine Operator Helper/PREDATORY ANIMAL EXTERMINATOR: Maite Monroy CNA Additional Personnel: : KOLE Silver MATERNAL INFORMATION Delivery Anesthesia: Epidural Medications After Delivery: Pitocin Drip 20 Units/1000ml NSS Maternal Complications: None LABOR SUMMARY EDC: 02/26/2018 00:00 No. Babies in Womb: 1 Attempted: No Labor Anesthesia: Epidural LABOR INFORMATION Reason for Induction: Not Applicable Onset of Labor: 02/27/2018 21:42 Complete Dilatation: 02/28/2018 06:24 Oxytocin: Augmentation Group B Beta Strep: Positive Antibiotics # of Doses: 1 Antibiotics Time of Last Dose: 0012 Name of Antibiotic Given: Vanc Steroids Given: None Reason Steroids Not Administered: Not Applicable MEMBRANES Membranes Rupture Method: Spontaneous Rupture of Membranes: 02/27/2018 21:42 Length of Rupture (hr): 8.92 Amniotic Fluid Color: Clear Amniotic Fluid Amount: Large Amniotic Fluid Odor: Normal STAGES OF LABOR Stage 1 hr: 8 Stage 1 min: 42 Stage 2 hr: 0 Stage 2 min: 13 Stage 3 hr: 0 Stage 3 min: 2 Total Time in Labor hr: 8 Total Time in Labor min: 57 VAGINAL DELIVERY Episiotomy: None Laceration #1: None Laceration Extension #1: N/A Laceration Repair: Not Applicable Sponge Count Correct: Yes Sharps Count Correct: Yes CSECTION DELIVERY Primary Indication: N/A Secondary Indication: N/A CSection Incidence: N/A Labor: N/A Elective: N/A CSection Incision: N/A BABY A INFORMATION Delivery Date/Time: 02/28/2018 06:37 Method of Delivery: Vaginal Born in Route : No : N/A Forceps: N/A Vacuum Extraction: N/A Shoulder Dystocia : No PRESENTATION/POSITION BABY A Presentation: Cephalic Cephalic Presentation: Vertex Vertex Position: Left Occipital Anterior Breech Presentation: N/A PLACENTA INFORMATION BABY A Placenta Delivery Time : 02/28/2018 06:39 Placenta Method of Delivery: Spontaneous Placenta Status: Delivered SCORES BABY A Heart Rate 1 min: >100 bpm Resp Effort 1 min: Good Cry Reflex Irritability 1 min: Cough or Sneeze or Pulls Away Muscle Tone 1 min: Active Motion Color 1 min: Body Mulino, Extremities Blue SCORE 1 MIN: 9 Heart Rate 5 min: >100 bpm Resp Effort 5 min: Good Cry Reflex Irritability 5 min: Cough or Sneeze or Pulls Away Muscle Tone 5 min: Active Motion Color 5 min: Completely Mulino SCORE 5 MIN: 10 INFORMATION BABY A Gestational Age at Delivery: 40.2 Gestational Status: Full Term- 39- 40.6 Weeks Outcome : Liveborn Condition : Stable Sex: Male IDENTIFICATION BABY A Infant Verification Date/Time: 02/28/2018 06:52 ID Band Number: [id number] Mother's Name Verified: Yes Infant RN Verifying : Ladi Morocho RN/D [employer] RNC WEIGHT/LENGTH BABY A Infant Birthweight (gm): 4145 Infant Weight (lb): 9 Infant Weight (oz): 2 Length (in): 21.25 Infant Length (cm): 53.98 CORD INFORMATION BABY A No. Cord Vessels: 3 Nuchal Cord : N/A Cord Blood Taken: Yes-For Eval (Mom's Blood Type - or O+) Infant Suction: Nose ASSESSMENT BABY A Infant Complications: None Physical Findings at Delivery: Within Normal Limits Respirations: Appears Normal Skin to Skin: Yes Skin to Skin Time (min): 60 Director Independent/ALS Called : No Infant Care By: Ladi Morocho RN Transferred To: Remains with Mother BABY B INFORMATION : N/A
[2018-02-28 13:10] LABS: PATH REVIEW PATHOLOGIST REVIEWED
[2018-02-28] MEDS: HYDROXYZINE PAMOATE 50 MG CAPSULE PO SCH ×2 (13:55→21:36)
[2018-02-28] MEDS: IBUPROFEN 800 MG TABLET PO SCH ×2 (13:56→21:36)
[2018-03-01] MEDS: ACETAMINOPHEN WITH CODEINE #3 TABLET PO PRN ×2 (02:35→08:33)
[2018-03-01] MEDS: IBUPROFEN 800 MG TABLET PO SCH ×3 (05:30→22:31)
[2018-03-01] MEDS: HYDROXYZINE PAMOATE 50 MG CAPSULE PO SCH ×3 (05:31→22:31)
[2018-03-01 07:38] LABS: HEMATOCRIT 23.3 % (36.0-47.0); MEAN CORPUSCULAR HEMOGLOBIN 22.1 pg (27.0-33.4); MEAN CORPUSCULAR HGB CONC 31.9 g/dL (32.0-36.0); MEAN CORPUSCULAR VOLUME 69 fl (80-97); PLATELET COUNT 319 10^3/uL (150-450); RED BLOOD COUNT 3.37 10^6/uL (3.72-5.28); RED CELL DISTRIBUTION WIDTH 17.1 % (11.5-14.0); WHITE BLOOD COUNT 13.1 10^3/uL (4.0-10.5)
[2018-03-01 07:52] LABS: HEMOGLOBIN 7.4 g/dL (12.0-15.5)
[2018-03-01] MEDS: FERROUS SULFATE 325 MG TABLET PO SCH ×2 (09:30→17:38)
[2018-03-01] MEDS: PRENATAL VITAMIN W DHA CAPSULE PO SCH (09:30)
[2018-03-01] MEDS: SENNOSIDES/DOCUSATE 8.6-50 MG 1 EACH TABLET PO SCH (09:31)
[2018-03-01] MEDS: DOCUSATE SODIUM 100 MG CAPSULE PO SCH ×2 (09:32→17:38)
[2018-03-01] MEDS: FAMOTIDINE 20 MG TABLET PO SCH ×2 (09:32→22:31)
--- NOTE | 2018-03-01 09:33 | PDOC PROGRESS REPORT ---
Subjective-OB Progress Note for:: 03/01/18 Subjective: Doing well,no c/o, friend at BS, bottle feeding, scant blleding Physical Exam (OB) Vital Signs: Temp Pulse Resp BP Pulse Ox 98.0 F 91 17 117/67 99 03/01/18 08:07 03/01/18 08:13 03/01/18 08:07 03/01/18 08:13 03/01/18 08:13 Intake & Output 02/28/18 03/01/18 03/02/18 06:59 06:59 06:59 Intake Total 450 Balance 450 Weight 83.2 kg - PIH/Pre-Eclampsia DTR's: 1 + Clonus: Negative Headache: Present Epigastric Pain: No Visual Changes: No - Lochia Lochia Amount: Small 10-25 ml Lochia Color: Rubra/Red - Abdomen Description: Tender, Soft Hernia Present: No Fundal Description: Firm, Midline Fundal Height: u/u - u/2 Objective-Diagnostic Laboratory: 03/01/18 06:57 03/01/18 03/01/18 06:57 06:57 WBC 13.1 H RBC 3.37 L Hgb 7.4 L Hct 23.3 L MCV 69 L MCH 22.1 L MCHC 31.9 L RDW 17.1 H Plt Count 319 Blood Type B NEGATIVE Assessment and Plan(PN) - Assessment and Plan (2) Anemia affecting Qualifiers: Trimester: unspecified trimester Qualified Code(s): O99.019 - Anemia complicating , unspecified trimester Is this a current diagnosis for this admission?: Yes (3) Amphetamine abuse, episodic Is this a current diagnosis for this admission?: Yes (4) Bipolar affective disorder Qualifiers: Most recent bipolar episode type: most recent episode unspecified type Is this a current diagnosis for this admission?: Yes (5) Trichomonal vaginitis during Qualifiers: Trimester: unspecified trimester Qualified Code(s): O23.599 - Infection of other part of genital tract in , unspecified trimester; A59.01 - Trichomonal vulvovaginitis; A59.01 - Trichomonal vulvovaginitis Is this a current diagnosis for this admission?: Yes (6) Chlamydia infection affecting Qualifiers: Trimester: unspecified trimester Qualified Code(s): O98.819 - Other maternal infectious and parasitic diseases complicating , unspecified trimester; A74.9 - Chlamydial infection, unspecified; A74.9 - Chlamydial infection, unspecified Is this a current diagnosis for this admission?: Yes (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
--- NOTE | 2018-03-01 12:38 | PDOC PROGRESS REPORT ---
Subjective-OB Progress Note for:: 03/01/18 Subjective: c/o of generalized pain. aching. Physical Exam (OB) Vital Signs: Temp Pulse Resp BP Pulse Ox 97.5 F 85 16 109/67 98 03/01/18 11:34 03/01/18 11:34 03/01/18 11:34 03/01/18 11:34 03/01/18 11:34 Intake & Output 02/28/18 03/01/18 03/02/18 06:59 06:59 06:59 Intake Total 450 Balance 450 Weight 83.2 kg - PIH/Pre-Eclampsia DTR's: 1 + Clonus: Negative Headache: Present Epigastric Pain: No Visual Changes: No - Lochia Lochia Amount: Small 10-25 ml Lochia Color: Rubra/Red - Abdomen Description: Tender, Soft Hernia Present: No Fundal Description: Firm, Midline Fundal Height: u/u - u/2 Objective-Diagnostic Laboratory: 03/01/18 06:57 03/01/18 03/01/18 06:57 06:57 WBC 13.1 H RBC 3.37 L Hgb 7.4 L Hct 23.3 L MCV 69 L MCH 22.1 L MCHC 31.9 L RDW 17.1 H Plt Count 319 Blood Type B NEGATIVE Assessment and Plan(PN) - Assessment and Plan (2) Anemia affecting Qualifiers: Trimester: unspecified trimester Qualified Code(s): O99.019 - Anemia complicating , unspecified trimester Is this a current diagnosis for this admission?: Yes (3) Amphetamine abuse, episodic Is this a current diagnosis for this admission?: Yes (4) Bipolar affective disorder Qualifiers: Most recent bipolar episode type: most recent episode unspecified type Is this a current diagnosis for this admission?: Yes (5) Trichomonal vaginitis during Qualifiers: Trimester: unspecified trimester Qualified Code(s): O23.599 - Infection of other part of genital tract in , unspecified trimester; A59.01 - Trichomonal vulvovaginitis; A59.01 - Trichomonal vulvovaginitis Is this a current diagnosis for this admission?: Yes (6) Chlamydia infection affecting Qualifiers: Trimester: unspecified trimester Qualified Code(s): O98.819 - Other maternal infectious and parasitic diseases complicating , unspecified trimester; A74.9 - Chlamydial infection, unspecified; A74.9 - Chlamydial infection, unspecified Is this a current diagnosis for this admission?: Yes (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
[2018-03-01] MEDS: OXYCODONE-ACETAMINOPHEN 5-325 MG TABLET PO PRN ×2 (13:13→19:24)
[2018-03-02] MEDS: OXYCODONE-ACETAMINOPHEN 5-325 MG TABLET PO PRN (01:16)
[2018-03-02 03:47] VITALS: BP 109/68
[2018-03-02] MEDS: HYDROXYZINE PAMOATE 50 MG CAPSULE PO SCH (05:53)
[2018-03-02] MEDS: IBUPROFEN 800 MG TABLET PO SCH (05:54)
--- NOTE | 2018-03-02 08:35 | PDOC PROGRESS REPORT ---
Subjective-OB Progress Note for:: 03/02/18 Subjective: OOB in halls, ready to go home, unsure if baby is going Physical Exam (OB) Vital Signs: Temp Pulse Resp BP Pulse Ox 98.3 F 81 18 109/68 97 03/02/18 03:11 03/02/18 03:11 03/02/18 03:11 03/02/18 03:11 03/02/18 03:11 Intake & Output 03/01/18 03/02/18 03/03/18 06:59 06:59 06:59 Intake Total 450 800 Balance 450 800 - PIH/Pre-Eclampsia DTR's: 2 + Clonus: Negative Headache: Absent Epigastric Pain: No Visual Changes: No - Lochia Lochia Amount: Scant < 10 ml Lochia Color: Rubra/Red - Abdomen Description: Soft Hernia Present: No Fundal Description: Firm, Midline Fundal Height: u/u - u/2 Objective-Diagnostic Laboratory: 03/01/18 06:57 03/01/18 06:57 Blood Type B NEGATIVE Assessment and Plan(PN) - Assessment and Plan (1) Vaginal delivery Is this a current diagnosis for this admission?: Yes (2) Anemia affecting Qualifiers: Trimester: unspecified trimester Qualified Code(s): O99.019 - Anemia complicating , unspecified trimester Is this a current diagnosis for this admission?: Yes (3) Amphetamine abuse, episodic Is this a current diagnosis for this admission?: Yes (4) Bipolar affective disorder Qualifiers: Most recent bipolar episode type: most recent episode unspecified type Is this a current diagnosis for this admission?: Yes (5) Trichomonal vaginitis during Qualifiers: Trimester: unspecified trimester Qualified Code(s): O23.599 - Infection of other part of genital tract in , unspecified trimester; A59.01 - Trichomonal vulvovaginitis; A59.01 - Trichomonal vulvovaginitis Is this a current diagnosis for this admission?: Yes (6) Chlamydia infection affecting Qualifiers: Trimester: unspecified trimester Qualified Code(s): O98.819 - Other maternal infectious and parasitic diseases complicating , unspecified trimester; A74.9 - Chlamydial infection, unspecified; A74.9 - Chlamydial infection, unspecified Is this a current diagnosis for this admission?: Yes (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
--- NOTE | 2018-03-02 08:38 | PDOC DISCHARGE SUMMARY ---
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 Is this a current diagnosis for this admission?: Yes (8) Drug use affecting Is this a current diagnosis for this admission?: Yes Discharge Data - Discharge Medication Prescriptions: Ferrous Sulfate [Iron] 325 mg PO DAILY #60 tablet Home Medications: Vit,Calc76/Iron/Folic [Pnv 29-1 Tablet] 1 tab PO DAILY 02/09/18 Ranitidine HCl [Zantac] 150 mg PO DAILY 02/28/18 Ferrous Sulfate [Iron] 325 mg PO DAILY #60 tablet 03/02/18 Gestational Age: 40.2 Reason(s) for Admission: PROM, Group B Strep Positive Procedures: Ultrasound Intrapartum Procedure(s): Spontaneous Vaginal Delivery, Episiotomy - Data Baby 1 Male Home with Mother: Yes Complications: No - Diagnosis Test Laboratory: Temp Pulse Resp BP Pulse Ox 98.3 F 81 18 109/68 97 03/02/18 03:11 03/02/18 03:11 03/02/18 03:11 03/02/18 03:11 03/02/18 03:11 02/27/18 02/27/18 02/28/18 23:00 23:57 01:42 RBC Cancelled 3.70 L Hgb Cancelled 8.4 L Hct Cancelled 25.8 L Urine Opiates Screen NEGATIVE 03/01/18 06:57 RBC 3.37 L Hgb 7.4 L Hct 23.3 L Urine Opiates Screen - Discharge information/Instructions Discharge Activity: Activity As Tolerated, No Lifting Over 10 Pounds, No Lifting /Push/Pulling, Pelvic Rest Discharge Diet: As Tolerated, Regular Disposition: HOME, SELF-CARE Follow [facility] with: [facility] in: 4, Weeks
[2018-03-02] MEDS: FAMOTIDINE 20 MG TABLET PO SCH (10:51)
[2018-03-02] MEDS: FERROUS SULFATE 325 MG TABLET PO SCH (10:52)
[2018-03-02] MEDS: DOCUSATE SODIUM 100 MG CAPSULE PO SCH (10:52)
[2018-03-02] MEDS: SENNOSIDES/DOCUSATE 8.6-50 MG 1 EACH TABLET PO SCH (10:52)
[2018-03-02] MEDS: PRENATAL VITAMIN W DHA CAPSULE PO SCH (10:52)
== END 2018-03-02 14:02 | disposition home or self-care (01) | DRG 774 ==
LOC: LC 22:41 → LR 23:27 → 2S 02-28 11:45
PROVIDERS: ADMIT Student in an Organized Health Care Education/Training Program; ATTEND Student in an Organized Health Care Education/Training Program
PROC: 4A1HXCZ Monitoring of Products of Conception, Cardiac Rate, External Approach (ICD-10-PCS; 2018-02-27)
PROC: 10E0XZZ Delivery of Products of Conception, External Approach (ICD-10-PCS; principal; 2018-02-28)
PROC: 3E0234Z Introduction of Serum, Toxoid and Vaccine into Muscle, Percutaneous Approach (ICD-10-PCS; 2018-03-01)
DX: O99.824 Streptococcus B carrier state complicating childbirth (principal); O98.82 Other maternal infectious and parasitic diseases complicating childbirth; O26.893 Other specified pregnancy related conditions, third trimester; Z67.21 Type B blood, Rh negative; O99.02 Anemia complicating childbirth; D64.9 Anemia, unspecified; O99.324 Drug use complicating childbirth; F15.10 Other stimulant abuse, uncomplicated; O99.344 Other mental disorders complicating childbirth; F31.9 Bipolar disorder, unspecified; O23.593 Infection of other part of genital tract in pregnancy, third trimester; A59.01 Trichomonal vulvovaginitis; A74.9 Chlamydial infection, unspecified; F41.9 Anxiety disorder, unspecified; F43.10 Post-traumatic stress disorder, unspecified; Z3A.40 40 weeks gestation of pregnancy; Z88.0 Allergy status to penicillin; Z37.0 Single live birth
CPT/HCPCS: 36415; 80307; 81005; 84112; 85025; 85027; 85461; 86592; 86850; 86900; 86901; G0480; J0456; J2590; J2790; J3010; J3370; J3490